=== PATIENT | female | born 1970 ===

== ENCOUNTER 2020-08-04 22:44 | Emergency (ER) | payer MEDICAID ==
[~2020-08-04] VITALS: Ht 165.1 cm; Wt 90.7 kg
[2020-08-04] MEDS ORDERED: HALOPERIDOL IM 5 MG/ML VIAL IM ONE (23:10)
[2020-08-04] MEDS ORDERED: LORazepam 2 MG/ML VIAL IM ONE (23:10)
[2020-08-04 23:25] VITALS: BP 120/80
--- NOTE | 2020-08-04 23:30 | NUR ---
MEDICATED PER ERMDS ORDER, PATIENT TOLERATED WELL.
[2020-08-04 23:47] LABS: BASOPHILS # (AUTO) 0.1 K/uL (0.00-0.22); BASOPHILS % (AUTO) 0.8 % (0.0-2.0); EOSINOPHILS # (AUTO) 0.2 K/uL (0-0.4); EOSINOPHILS % (AUTO) 1.3 % (0.0-4.0); HEMATOCRIT 41.4 % (36-48); HEMOGLOBIN 13.5 g/dL (12.0-16.0); LYMPHOCYTES # (AUTO) 3.8 K/uL (2.5-16.5); LYMPHOCYTES % (AUTO) 31.4 % (20.5-51.1); MEAN CORPUSCULAR HEMOGLOBIN 28 pg (27-31); MEAN CORPUSCULAR HGB CONC 33 g/dL (33-37); MEAN CORPUSCULAR VOLUME 87.2 fL (80-94); MONOCYTES # (AUTO) 0.5 K/uL (0.8-1.0); MONOCYTES % (AUTO) 4.1 % (1.7-9.3); NEUTROPHILS # (AUTO) 7.5 K/uL (1.8-7.7); NEUTROPHILS % (AUTO) 62.4 % (42.2-75.2); PLATELET COUNT (AUTO) 360 K/uL (140-450); RED BLOOD CELL COUNT(AUTO) 4.75 MIL/uL (4.20-5.40); RED CELL DISTRIBUTION WIDTH 15.9 % (11.6-13.7)
[2020-08-05] LABS: ALBUMIN 4.2 g/dL (3.4-5.0); ANION GAP 17.6 (8-16); ASPARTATE AMINOTRANSFERASE 31 U/L (15-37); CARBON DIOXIDE 24.9 mmol/L (21-32); CHLORIDE 101 mmol/L (98-107); CREATININE 0.7 mg/dL (0.6-1.3); GFR ARICAN-AMERICAN 114 mL/min (>90); GLUCOSE 78 mg/dL (74-106); POTASSIUM 3.5 mmol/L (3.5-5.1); SODIUM SERUM 140 mmol/L (136-145); TOTAL BILIRUBIN 0.3 mg/dL (0.0-1.0); UREA NITROGEN, BLOOD 12 mg/dL (7-18)
[2020-08-05 00:01] LABS: ACETAMINOPHEN < 0.5 ug/ml (10-30); SALICYLATE < 2.8 mg/dL (2.8-20.0)
--- NOTE | 2020-08-05 01:36 | NUR ---
PT [facility]AK[facility] BLS. TAKEN TO BED 7
--- NOTE | 2020-08-05 01:50 | NUR ---
50 Y/O FEMALE KATHRYNA& ILIANA HUERTA, C/O SUICIDAL IDEATION STATING SHE WANTED TO KILL HERSELF PER ILIANA HUERTA PT STATED THAT SHE HAS A BIPOLAR DISORDER AND HAS BEEN "OFF HER MEDICATION FOR 1 WEEK AND NEEDS HELP". HOLD WRITTEN BY ILIANA HUERTA. JOSEFINA. PT DENIES PAIN,N/V/DIARRHEA. NO NEUROLOGICAL DEFICITS. PT PLACED IN ROOM WITH SI PRECUATIONS IN PLACE. PMH:BIPOLAR, PTSD NKDA
--- NOTE | 2020-08-05 01:50 | NUR ---
PT IS SLEEPING. VISIBLE RISE AND FALL OF CHEST NOTED. UNABLE TO OBTAIN URINE SPECIMEN AT THIS TIME. PT IS NOT IN ANY ACUTE DISTRESS AT THIS TIME. BED IS LOCKED AND IN LOWEST POSITION. PT IS WITHIN VIEW OF THE NURSES STATION. WILL CONTINUE TO MONITOR.
--- NOTE | 2020-08-05 02:00 | NUR ---
PER TIMOTHY PEREZ, NO IV ACCESS NEEDED AT THIS TIME. OK TO HOLD/DC NS BOLUS.
[2020-08-05] MEDS ORDERED: NACL 0.9% 1,000 ML IV ONE (02:40)
--- NOTE | 2020-08-05 03:00 | NUR ---
PT IS ASLEEP. VISIBLE RISE AND FALL OF CHEST NOTED. PT WITHIN VIEW OF NURSING STATION. PT IS NOT IN ANY ACUTE DISTRESS AT THIS TIME. BED IS LOCKED AND IN LOWEST POSITION. SAO2 @99%. SIDE RAILSX2 FOR PT PROTECTION. WILL CONTINUE TO MONITOR.
--- NOTE | 2020-08-05 05:00 | NUR ---
PT IS ASLEEP. VISIBLE RISE AND FALL OF CHEST NOTED. PT WITHIN VIEW OF NURSING STATION. PT IS NOT IN ANY ACUTE DISTRESS AT THIS TIME. BED IS LOCKED AND IN LOWEST POSITION. SAO2 @97%. SIDE RAILSX2 FOR PT PROTECTION. WILL CONTINUE TO MONITOR.
--- NOTE | 2020-08-05 05:44 | NUR ---
TELEPSYCH INITIATED PER DR. PEREZ
--- NOTE | 2020-08-05 05:45 | NUR ---
PT NOTIFIED THAT THE ERMD HAS ORDERED A PSYCHIATRIST CONSULT OVER THE COMPUTER. PT IS BEING VERBALLY ABUSIVE TO STAFF AT THIS TIME SHOUTING SAYING THAT SHE DOESN'T NEED TO BE WOKEN UP AND IS TRYING TO SLEEP.
--- NOTE | 2020-08-05 06:24 | NUR ---
TELEPSYCH DOCTOR SPEAKING WITH PATIENT VIA REMOTE COMMUNICATION. PRIMARY RN AT BEDSIDE
--- NOTE | 2020-08-05 06:32 | NUR ---
PT VERBALIZED TO TELEPSYCH THAT SHE HAS TRIED TO KILL HERSELF 4 TIMES. HER PLAN IS TO WALK INTO MOVING TRAFFIC. PT STATED THAT THE LAST TIME SHE ATTEMPTED SUICIDE WAS IN DECEMBER OF 2019.
--- NOTE | 2020-08-05 06:47 | NUR ---
PT REFUSES TO PROVIDE URINE SAMPLE AT THIS TIME. PT STATES THAT SHE WANTS TO SLEEP.
--- NOTE | 2020-08-05 07:30 | NUR ---
REPORT GIVEN TO WILBER CASTELLON FOR TRANSFER OF CARE. PT IS ASLEEP. BED IS LOCKED AND IN LOWEST POSITION. SIDE RAILSX2 FOR PT PROTECTION.
--- NOTE | 2020-08-05 08:00 | NUR ---
PT RESTING WITH EYES CLOSED, BREATHING EVEN AND UNLABORED. SITTER REMAINS AT BEDSIDE
--- NOTE | 2020-08-05 09:52 | NUR ---
PT RESTING WITH EYES CLOSED, BREATHING EVEN AND UNLABORED. SITTER REMAINS AT BEDSIDE
--- NOTE | 2020-08-05 11:00 | NUR ---
PT RESTING WITH EYES CLOSED, BREATHING EVEN AND UNLABORED. NO DISTRESS NOTED. WILL CONTINUE TO MONITOR. SITTER REMAINS AT BEDSIDE
--- NOTE | 2020-08-05 12:34 | NUR ---
SARITA AND COVID SWAB SENT TO LAB
--- NOTE | 2020-08-05 13:00 | NUR ---
PT RESTING WITH EYES CLOSED, BREATHING EVEN AND UNLABORED. NO DISTRESS NOTED. WILL CONTINUE TO MONITOR. SITTER REMAINS AT BEDSIDE
--- NOTE | 2020-08-05 15:00 | NUR ---
PT RESTING WITH EYES CLOSED, BREATHING EVEN AND UNLABORED. NO DISTRESS NOTED. WILL CONTINUE TO MONITOR. SITTER REMAINS AT BEDSIDE
[2020-08-05 16:34] LABS: BARBITURATE, URINE NEGATIVE ng/ml (NEG <=200); BENZODIAZEPINE, URINE POSITIVE ng/mL (NEG <=200); CANNABINOID, URINE NEGATIVE ng/mL (NEG <=50); COCAINE, URINE NEGATIVE ng/mL (NEG <=300); OPIATE, URINE NEGATIVE ng/mL (NEG <=2000); PHENCYCLIDINE SCREEN,URINE NEGATIVE ng/mL (NEG <=25)
--- NOTE | 2020-08-05 17:10 | NUR ---
PT WOKEN UP, BREATHING EVEN AND UNLABORED. PT GIVEN 2 APPLEJUICES.
--- NOTE | 2020-08-05 18:13 | NUR ---
PT RESTING WITH EYES CLOSED, BREATHING EVEN AND UNLABORED. NO DISTRESS NOTED. PT REMAINS ON MONITOR, VS STABLE
--- NOTE | 2020-08-05 19:30 | NUR ---
REPORT RECEIVED FROM WILBER LOU
--- NOTE | 2020-08-05 19:32 | NUR ---
REPORT GIVEN TO HILDA MERINO, TRANSFER OF CARE AT THIS TIME.
--- NOTE | 2020-08-05 19:50 | NUR ---
RESTING IN BED WITH EYES CLOSED, RESPIRATIONS REGULAR AND UNLABORED. Q 15 MIN CHECKS CONTINUE
--- NOTE | 2020-08-05 23:09 | NUR ---
PT MOVED TO CHAIR D AREA
--- NOTE | 2020-08-06 02:45 | NUR ---
RESTING WITH EYES CLOSED
--- NOTE | 2020-08-06 04:00 | NUR ---
PT PROVIDED W/ JUICE AT THIS TIME.
--- NOTE | 2020-08-06 05:34 | NUR ---
Patient was [facility] to [facility], [facility], [place], [facility] and [facility]. ED will be notified if and when a bed becomes available. Will endorse to oncoming AM shift.
--- NOTE | 2020-08-06 07:24 | NUR ---
Received report. [facility] still working on placement at this time. No beds.
--- NOTE | 2020-08-06 07:44 | NUR ---
Patient ambulated to restroom with steady gait
[2020-08-06] MEDS ORDERED: APIXABAN 2.5 MG TAB PO SCH (14:55)
[2020-08-06] MEDS ORDERED: ACETAMINOPHEN EXTRA STRENGTH 500 MG TAB PO ONE (14:55)
--- NOTE | 2020-08-06 18:09 | NUR ---
Dr. Johns is evaluating the patient at bedside.
--- NOTE | 2020-08-06 19:30 | NUR ---
Patient appears to be resting comfortably in bed. Vital Signs within normal limits. Respirations even and unlabored, covered her face with blankets
[2020-08-06] MEDS ORDERED: traZODone 50 MG TAB PO SCH (21:00)
[2020-08-06] MEDS: OLANZapine 5 MG TAB PO SCH (21:00)
--- NOTE | 2020-08-06 21:00 | NUR ---
Patient refused to take her medicines, ERMD aware of it.
--- NOTE | 2020-08-07 00:30 | NUR ---
Patient refuses to be touch, vital signs were not taken, ERMD aware of it.
[2020-08-07] MEDS: DIVALPROEX 500 MG TABEC PO SCH ×2 (04:20→09:00)
[2020-08-07] MEDS ORDERED: OLANZapine 2.5 MG TAB ONE (04:44)
--- NOTE | 2020-08-07 05:45 | NUR ---
Call center aware of pt , still no beds available thru the whole shift , will endorsed to AM shift to continue to look for placement .
--- NOTE | 2020-08-07 07:02 | NUR ---
still sleeping with face and body covered with blankets.
--- NOTE | 2020-08-07 08:35 | NUR ---
There are no beds/updates at this time. [facility] still working on placement.
[2020-08-07] MEDS: OLANZapine 5 MG TAB PO SCH (09:00)
--- NOTE | 2020-08-07 13:20 | NUR ---
SPOKE WITH JU AT [facility] TO GIVE REPORT, ADVISED HIM ETA IS APPROX. 40 MIN.
[2020-08-07 14:10] VITALS: BP 115/78
--- NOTE | 2020-08-07 14:10 | NUR ---
Patient to be transferred to [facility]. Is being transferred due to HOLD. Receiving facility has accepting physician and available space. ER physician has signed transfer form. Patient or responsible alliance party has agreed to transfer and signed form. Patient belongings inventoried and will be sent with patient. Copy of nursing notes, lab reports, EKG, Physicians Orders and X-rays to be sent with patient. Report called to JU at receiving facility.
== END 2020-08-07 13:20 | disposition home or self-care (01) ==
LOC: MED 22:44
DX: R45.851 Suicidal ideations (principal); Z20.828 Contact with and (suspected) exposure to other viral communicable diseases; R45.1 Restlessness and agitation; F10.129 Alcohol abuse with intoxication, unspecified; F31.9 Bipolar disorder, unspecified
CPT/HCPCS: 36415; 80053; 80305; 85025; 87426; 96372; 99285; G0480; G0482; J1630; J2060; J7030; U0003; 93005; 99283